=== PATIENT | female | born 1975 | race Caucasian/White ===

== ENCOUNTER 2018-03-10 20:17 | Emergency (ER) | payer BC, SELFPAY ==
[2018-03-10 20:24] VITALS: BP 132/81; PULSE 86; RESP 16; TEMP 36.8; O2SAT 96
[2018-03-10 20:36] LABS: Bilirubin Negative (Negative); Blood Trace-intact (Negative); Clarity Cloudy; Glucose Negative (Negative); Ketones Negative (Negative); Leukocyte Esterase Trace (Negative); Nitrite Negative (Negative); Specific Gravity >= 1.030 (1.005-1.025); Urobilinogen 0.2 EU/dL (Up TO 0.2)
--- NOTE | 2018-03-10 20:37 | W.ED.GENAD ---
Discharge Plan Disposition Patient Disposition: HOME Condition: Stable Discharge Details Chief Complaint: Urinary Clinical Impression: UTI (urinary tract infection) Primary Care Provider: Kenya Castro ED Provider: Dee Dee Belcher Home Meds and New Rx's Prescriptions: New sulfamethoxazole-trimethoprim [Bactrim DS] 800-160 mg tablet 1 tab PO BID 5 Days Qty: 10 RF: 0 phenazopyridine [Pyridium] 100 mg tablet 100 mg PO TID PRN (Reason: pain) 0 Days Qty: 6 RF: 0 Continue PNV cmb#95-ferrous fumarate-FA [] 1 EACH tablet 1 tab PO DAILY RF: 0 acetaminophen [Tylenol] 325 MG tablet 2 tab PO DIRECTED RF: 0 ibuprofen 200 MG capsule 1 tab PO DIRECTED RF: 0 docusate sodium [Colace] 100 MG capsule 1 tab PO DAILY RF: 0 Discharge Instructions Instructions: Urinary Tract Infection in Women (ED) Additional Instructions: Take the antibiotics until finished. Take the pyridium as needed for burning with urination. Follow up with your primary care doctor in 1 week for re-evaluation as needed. Return to the emergency department with any worsening or new concerning symptoms such as fever, vomiting, back pain or any other concerns. Discharge Data Discharge Physician: Dee Dee Belcher Medical Decision Making Medical Records 42yo F w/ dysuria, hematuria, and urinary frequency x 1 week. No fever, vomiting or back pain. Vitals within normal limits. Afebrile. Pt appears nontoxic. Minimal suprapubic tenderness. No CVAT. Appears likely c/w UTI. No signs to indicate pyelonephritis at this time. UA notes 10-20 wbc, trace leukocyte esterace, neg epi's, neg nitrite, few bacteria. Urine culture sent. Pt states she has responded to bactrim in the past. Pt states she would like pyridium as well. Dose of bactrim and pyridium given here and scripts for home. test negative. Pt instructed to f/u with pcp in 1 week as needed and to return here with any worsening symptoms of fever, vomiting, back pain or any other concerns. HPI General Mode of arrival: ambulatory. Date/Time Provider Initiated Documentation: 03/10/18 20:26. Limitations to Documentation: no limitations. Information obtained by: patient. HPI Narrative: Pt is a 42yo F who presents to the ED w/ a c/o dysuria, hematuria, and urinary frequency for the past week. Pt has a h/o UTI in the past and states this feels similar. Pt has last taken antibiotics 2 years ago. Pt denies fever, vomiting, or back pain. Pt states she has had intermittent nausea but none at present. Pt states she tried to get into her PCP for this but was not able to get an appointment until 03/17. Past medical history: Asthma, PTSD Surgical history: x 2, Left ACL repair, T&A, R breast lumpectomy Social history: Denies tobacco, alcohol or drugs Meds: Vitamins Allergies: Effexor, Codeine (nausea) PCP: Dr. Milan Related Data Home Medications Medication Instructions Recorded Confirmed PNV cmb#95-ferrous fumarate-FA 1 tab PO DAILY 07/09/15 03/10/18 [] acetaminophen [Tylenol] 2 tab PO DIRECTED 11/25/15 03/10/18 docusate sodium [Colace] 1 tab PO DAILY 11/25/15 03/10/18 ibuprofen 1 tab PO DIRECTED 11/25/15 03/10/18 phenazopyridine [Pyridium] 100 mg PO TID PRN 0 Days #6 tab 03/10/18 sulfamethoxazole-trimethoprim 1 tab PO BID 5 Days #10 tab 03/10/18 [Bactrim DS] Previous Rx's Medication Instructions Recorded phenazopyridine [Pyridium] 100 mg PO TID PRN 0 Days #6 tab 03/10/18 sulfamethoxazole-trimethoprim 1 tab PO BID 5 Days #10 tab 03/10/18 [Bactrim DS] Allergies Allergy/AdvReac Type Severity Reaction Status Date / Time venlafaxine HCl Allergy Verified 03/10/18 20:30 [From Effexor] codeine AdvReac Nausea Verified 03/10/18 20:30 General Stated Complaint: Urinary MARCIA: 4 Review of Systems Review of Systems All systems reviewed & are unremarkable except as noted in HPI and below Constitutional Reports as per HPI, Denies chills and Denies fever(s) Eyes Denies blurry vision ENT Denies dizziness, Denies sore throat and Denies throat swelling Cardiovascular Denies chest pain and Denies dyspnea Respiratory Denies cough and Denies dyspnea Gastrointestinal Reports abdominal pain, Denies diarrhea and Denies vomiting Genitourinary Reports hematuria, Reports urinary frequency, Reports dysuria and Reports urinary urgency Musculoskeletal Denies back pain and Denies numbness Integumentary/Breasts Denies lesions and Denies rash Neurologic Denies dizziness, Denies focal weakness and Denies numbness Allergic/Immunologic Denies throat swelling COUNT INCLUDES THE [facility] Medical History Asthma PTSD (post-traumatic stress disorder) Social History Smoking/Tobacco Use Status: Never Surgical History section Tonsillectomy and adenoidectomy knee surgery Exam Const General: cooperative, healthy appearing and no acute distress HENMT Head: normal to inspection Eyes General: appearance normal, both eyes and all related structures Neck Neck: normal visual inspection Resp Effort & Inspection: normal respiratory effort and able to speak in complete sentences Auscultation: clear to auscultation bilaterally Cardio Rate: regular rate Rhythm: regular rhythm GI Palpation: soft and tender suprapubicly (minimal ) Back/Spine/Pelvis Back: no CVA tenderness Skin General skin exam: no rashes or lesions noted Neuro General: alert, awake and oriented x3 Motor: muscle tone normal throughout Extrem General: normal to inspection, full ROM and no edema Psych Appearance: grossly normal Affect: normal affect Course Vital Signs Temperature 98.3 F 03/10/18 20:24 Pulse 86 03/10/18 20:24 Respiratory Rate 16 03/10/18 20:24 Blood Pressure 132/81 03/10/18 20:24 Pulse Oximetry 96 03/10/18 20:24 Temperature 98.3 F 03/10/18 20:24 Temperature Source Skin 03/10/18 20:24 Pulse 86 03/10/18 20:24 Respiratory Rate 16 03/10/18 20:24 Respiratory Effort 03/10/18 20:28 Blood Pressure 132/81 03/10/18 20:24 Blood Pressure Position Sitting 03/10/18 20:24 Pulse Oximetry 96 03/10/18 20:24 Oxygen Delivery Method Room Air 03/10/18 20:24 Oxygen Flow Rate 0 03/10/18 20:24 Pain Level 5 03/10/18 20:29
[2018-03-10 20:44] LABS: Bacteria Few HPF (Negative); Crystals Negative HPF (Negative); Epithelial Cells Negative HPF (Negative); Mucus Negative (Negative); Other Cells Negative (Negative)
[2018-03-10 20:45] LABS: C & S Indicated? Yes; Casts Negative LPF (Negative)
--- NOTE | 2018-03-10 20:56 | ED.GENADUL_ITS ---
Discharge Plan Disposition Patient Disposition: HOME Condition: Stable Discharge Details Chief Complaint: Urinary Clinical Impression: UTI (urinary tract infection) Primary Care Provider: Kenya Castro ED Provider: Dee Dee Belcher Home Meds and New Rx's Prescriptions: New sulfamethoxazole-trimethoprim [Bactrim DS] 800-160 mg tablet 1 tab PO BID 5 Days Qty: 10 RF: 0 phenazopyridine [Pyridium] 100 mg tablet 100 mg PO TID PRN (Reason: pain) 0 Days Qty: 6 RF: 0 Continue PNV cmb#95-ferrous fumarate-FA [] 1 EACH tablet 1 tab PO DAILY RF: 0 acetaminophen [Tylenol] 325 MG tablet 2 tab PO DIRECTED RF: 0 ibuprofen 200 MG capsule 1 tab PO DIRECTED RF: 0 docusate sodium [Colace] 100 MG capsule 1 tab PO DAILY RF: 0 Discharge Instructions Instructions: Urinary Tract Infection in Women (ED) Additional Instructions: Take the antibiotics until finished. Take the pyridium as needed for burning with urination. Follow up with your primary care doctor in 1 week for re-evaluation as needed. Return to the emergency department with any worsening or new concerning symptoms such as fever, vomiting, back pain or any other concerns. Discharge Data Discharge Physician: Dee Dee Belcher Medical Decision Making Medical Records 42yo F w/ dysuria, hematuria, and urinary frequency x 1 week. No fever, vomiting or back pain. Vitals within normal limits. Afebrile. Pt appears nontoxic. Minimal suprapubic tenderness. No CVAT. Appears likely c/w UTI. No signs to indicate pyelonephritis at this time. UA notes 10-20 wbc, trace leukocyte esterace, neg epi's, neg nitrite, few bacteria. Urine culture sent. Pt states she has responded to bactrim in the past. Pt states she would like pyridium as well. Dose of bactrim and pyridium given here and scripts for home. test negative. Pt instructed to f/u with pcp in 1 week as needed and to return here with any worsening symptoms of fever, vomiting, back pain or any other concerns. HPI General Mode of arrival: ambulatory . Date/Time Provider Initiated Documentation: 03/10/18 20:26 . Limitations to Documentation: no limitations . Information obtained by: patient . HPI Narrative: Pt is a 42yo F who presents to the ED w/ a c/o dysuria, hematuria , and urinary frequency for the past week. Pt has a h/o UTI in the past and states this feels similar. Pt has last taken antibiotics 2 years ago. Pt denies fever, vomiting, or back pain. Pt states she has had intermittent nausea but none at present. Pt states she tried to get into her PCP for this but was not able to get an appointment until 03/17. Past medical history: Asthma, PTSD Surgical history: x 2, Left ACL repair, T&A, R breast lumpectomy Social history: Denies tobacco, alcohol or drugs Meds: Vitamins Allergies: Effexor, Codeine (nausea) PCP: Dr. Milan Related Data Home Medications Medication Instructions Recorded Confirmed PNV cmb#95-ferrous fumarate-FA 1 tab PO DAILY 07/09/15 03/10/18 [] acetaminophen [Tylenol] 2 tab PO DIRECTED 11/25/15 03/10/18 docusate sodium [Colace] 1 tab PO DAILY 11/25/15 03/10/18 ibuprofen 1 tab PO DIRECTED 11/25/15 03/10/18 phenazopyridine [Pyridium] 100 mg PO TID PRN 0 Days #6 tab 03/10/18 sulfamethoxazole-trimethoprim 1 tab PO BID 5 Days #10 tab 03/10/18 [Bactrim DS] Previous Rx's Medication Instructions Recorded phenazopyridine [Pyridium] 100 mg PO TID PRN 0 Days #6 tab 03/10/18 sulfamethoxazole-trimethoprim 1 tab PO BID 5 Days #10 tab 03/10/18 [Bactrim DS] Allergies Allergy/AdvReac Type Severity Reaction Status Date / Time venlafaxine HCl Allergy Verified 03/10/18 20:30 [From Effexor] codeine AdvReac Nausea Verified 03/10/18 20:30 General Stated Complaint: Urinary MARCIA: 4 Review of Systems Review of Systems All systems reviewed & are unremarkable except as noted in HPI and below Constitutional Reports as per HPI, Denies chills and Denies fever(s) Eyes Denies blurry vision ENT Denies dizziness, Denies sore throat and Denies throat swelling Cardiovascular Denies chest pain and Denies dyspnea Respiratory Denies cough and Denies dyspnea Gastrointestinal Reports abdominal pain, Denies diarrhea and Denies vomiting Genitourinary Reports hematuria, Reports urinary frequency, Reports dysuria and Reports urinary urgency Musculoskeletal Denies back pain and Denies numbness Integumentary/Breasts Denies lesions and Denies rash Neurologic Denies dizziness, Denies focal weakness and Denies numbness Allergic/Immunologic Denies throat swelling [facility] Medical History Asthma PTSD (post-traumatic stress disorder) Social History Smoking/Tobacco Use Status: Never Surgical History section Tonsillectomy and adenoidectomy knee surgery Exam Const General: cooperative, healthy appearing and no acute distress HENMT Head: normal to inspection Eyes General: appearance normal, both eyes and all related structures Neck Neck: normal visual inspection Resp Effort & Inspection: normal respiratory effort and able to speak in complete sentences Auscultation: clear to auscultation bilaterally Cardio Rate: regular rate Rhythm: regular rhythm GI Palpation: soft and tender suprapubicly (minimal ) Back/Spine/Pelvis Back: no CVA tenderness Skin General skin exam: no rashes or lesions noted Neuro General: alert, awake and oriented x3 Motor: muscle tone normal throughout Extrem General: normal to inspection, full ROM and no edema Psych Appearance: grossly normal Affect: normal affect Course Vital Signs Temperature 98.3 F 03/10/18 20:24 Pulse 86 03/10/18 20:24 Respiratory Rate 16 03/10/18 20:24 Blood Pressure 132/81 03/10/18 20:24 Pulse Oximetry 96 03/10/18 20:24 Temperature 98.3 F 03/10/18 20:24 Temperature Source Skin 03/10/18 20:24 Pulse 86 03/10/18 20:24 Respiratory Rate 16 03/10/18 20:24 Respiratory Effort 03/10/18 20:28 Blood Pressure 132/81 03/10/18 20:24 Blood Pressure Position Sitting 03/10/18 20:24 Pulse Oximetry 96 03/10/18 20:24 Oxygen Delivery Method Room Air 03/10/18 20:24 Oxygen Flow Rate 0 03/10/18 20:24 Pain Level 5 03/10/18 20:29
[2018-03-10] MEDS: Phenazopyridine 100 MG TAB PO ×2 (21:11→21:15)
[2018-03-10] MEDS: Sulfameth/Trimeth DS TAB 1 TAB PO (21:11)
[2018-03-10 21:18] VITALS: BP 132/81; PULSE 86; RESP 16; TEMP 36.8; O2SAT 96
== END 2018-03-10 21:16 | disposition home or self-care (01) ==
LOC: ER 21:01
PROVIDERS: Emergency Provider Physician Assistant; PCP Family Medicine
DX: R39.0 Extravasation of urine (principal)
CPT/HCPCS: 81025; 99283; 81003; 81015; 87086

== ENCOUNTER 2018-05-28 20:00 | Emergency (ER) | payer BC, SELFPAY ==
--- NOTE | 2018-05-28 20:01 | W.ED.GENAD ---
Discharge Plan Disposition Patient Disposition: HOME Condition: Stable Discharge Details Chief Complaint: Orthopedic Clinical Impression: Right ankle sprain Primary Care Provider: Kenya Castro ED Provider: Christian Cavanaugh Home Meds and New Rx's Prescriptions: No Action acetaminophen [Tylenol] 325 MG tablet 2 tab PO DIRECTED RF: 0 ibuprofen 200 MG capsule 1 tab PO DIRECTED RF: 0 Discharge Instructions Instructions: Ankle Sprain (ED) Additional Instructions: you can take 1000mg tylenol and 600mg ibuprofen every 6 hours for pain as needed if pain continues in a week see your primary care provider for a recheck Medical Decision Making 42 yo female comes in with right lateral ankle pain. She states around noon today she was on a new sled tube and tried to stop and her right ankle hit a fence, no head trauma or loc. No headache, neck pain, chest pain, abd pain. Only has pain in the right lateral ankle. HAs limited rom of the ankle due to pain. No pain over metatarsals, no gross deformity or swelling, 2+ dp/pt pulses and intact sensation. Suspect contusion vs sprain/strain but will obtain xray to eval for fx/dislocation no acute findings on read of the xray. If vrad agrees will place in ankle stir up splint and crutches to use as needed, and advised f/u with pcp in a week if pain continues Differential Diagnosis sprain, strain, contusion, fx Imaging Data Radiologic Study: Attestation: I personally reviewed and interpreted this imaging study as follows: Imaging: X-Ray My impression: no acute findings HPI General Mode of arrival: wheelchair. Date/Time Provider Initiated Documentation: 05/28/18 20:01. Limitations to Documentation: no limitations. Information obtained by: patient. History of Present Illness 42 year old F presents to the emergency department with the chief complaint of right ankle pain, described as moderate, with intensity rated at 6. Quality is described as aching, and is localized to the right and lower extremity. Patient reports no radiation. Patient started experiencing this hour(s) (8) and it has been constant. Movement improves symptom(s), Rest worsens symptoms . Patient notes no other symptoms.. Patient did receive the following treatments prior to arrival, none Related Data Home Medications Medication Instructions Recorded Confirmed acetaminophen [Tylenol] 2 tab PO DIRECTED 11/25/15 05/28/18 ibuprofen 1 tab PO DIRECTED 11/25/15 05/28/18 Allergies Allergy/AdvReac Type Severity Reaction Status Date / Time venlafaxine HCl Allergy Verified 05/28/18 20:09 [From Effexor] codeine AdvReac Nausea Verified 05/28/18 20:09 General MARCIA: 4 Review of Systems Review of Systems All systems reviewed & are unremarkable except as noted in HPI and below Constitutional Denies chills, Denies fever(s) and Denies weakness Cardiovascular Denies chest pain and Denies dyspnea Respiratory Denies dyspnea Gastrointestinal Denies abdominal pain, Denies nausea and Denies vomiting Musculoskeletal Denies joint swelling Neurologic Denies weakness [facility] Medical History Asthma PTSD (post-traumatic stress disorder) Surgical History section Tonsillectomy and adenoidectomy knee surgery Social History Smoking/Tobacco Use Status: Never Exam Const General: no acute distress Orientation: alert HENMT Head: normal to inspection Ears: external ears normal General nose exam: external nose normal Mouth: moist mucous membranes Eyes General: appearance normal, both eyes and all related structures Neck Neck: normal visual inspection Resp Effort & Inspection: normal respiratory effort and able to speak in complete sentences Cardio Rate: regular rate Skin General skin exam: no rashes or lesions noted Neuro General: alert and oriented x3 Extrem General: normal capillary refill Psych Mental Status: mental status grossly normal
[2018-05-28 20:04] VITALS: BP 138/70; PULSE 85; RESP 18; TEMP 37.2; O2SAT 99
--- NOTE | 2018-05-28 20:11 | DI.RAD_ITS ---
SYMPTOMS/DIAGNOSIS: PAIN, S/P TRAUMA RIGHT ANKLE: Three views. No acute fracture or dislocation is identified. IMPRESSION: No acute abnormality.
[2018-05-28] MEDS: Ibuprofen 600 MG TAB PO (20:14)
--- NOTE | 2018-05-28 20:22 | ED.GENADUL_ITS ---
Discharge Plan Disposition Patient Disposition: HOME Condition: Stable Discharge Details Chief Complaint: Orthopedic Clinical Impression: Right ankle sprain Primary Care Provider: Kenya Castro ED Provider: Christian Cavanaugh Home Meds and New Rx's Prescriptions: No Action acetaminophen [Tylenol] 325 MG tablet 2 tab PO DIRECTED RF: 0 ibuprofen 200 MG capsule 1 tab PO DIRECTED RF: 0 Discharge Instructions Instructions: Ankle Sprain (ED) Additional Instructions: you can take 1000mg tylenol and 600mg ibuprofen every 6 hours for pain as needed if pain continues in a week see your primary care provider for a recheck Medical Decision Making 42 yo female comes in with right lateral ankle pain. She states around noon today she was on a new sled tube and tried to stop and her right ankle hit a fence, no head trauma or loc. No headache, neck pain, chest pain, abd pain. Only has pain in the right lateral ankle. HAs limited rom of the ankle due to pain. No pain over metatarsals, no gross deformity or swelling, 2+ dp/pt pulses and intact sensation. Suspect contusion vs sprain/strain but will obtain xray to eval for fx/dislocation no acute findings on read of the xray. If vrad agrees will place in ankle stir up splint and crutches to use as needed, and advised f/u with pcp in a week if pain continues Differential Diagnosis sprain, strain, contusion, fx Imaging Data Radiologic Study: Attestation: I personally reviewed and interpreted this imaging study as follows: Imaging: X-Ray My impression: no acute findings HPI General Mode of arrival: wheelchair . Date/Time Provider Initiated Documentation: 05/28/18 20:01 . Limitations to Documentation: no limitations . Information obtained by: patient . History of Present Illness 42 year old F presents to the emergency department with the chief complaint of right ankle pain, described as moderate, with intensity rated at 6. Quality is described as aching, and is localized to the right and lower extremity. Patient reports no radiation. Patient started experiencing this hour(s) (8) and it has been constant. Movement improves symptom(s), Rest worsens symptoms . Patient notes no other symptoms.. Patient did receive the following treatments prior to arrival, none Related Data Home Medications Medication Instructions Recorded Confirmed acetaminophen [Tylenol] 2 tab PO DIRECTED 11/25/15 05/28/18 ibuprofen 1 tab PO DIRECTED 11/25/15 05/28/18 Allergies Allergy/AdvReac Type Severity Reaction Status Date / Time venlafaxine HCl Allergy Verified 05/28/18 20:09 [From Effexor] codeine AdvReac Nausea Verified 05/28/18 20:09 General MARCIA: 4 Review of Systems Review of Systems All systems reviewed & are unremarkable except as noted in HPI and below Constitutional Denies chills, Denies fever(s) and Denies weakness Cardiovascular Denies chest pain and Denies dyspnea Respiratory Denies dyspnea Gastrointestinal Denies abdominal pain, Denies nausea and Denies vomiting Musculoskeletal Denies joint swelling Neurologic Denies weakness [facility] Medical History Asthma PTSD (post-traumatic stress disorder) Surgical History section Tonsillectomy and adenoidectomy knee surgery Social History Smoking/Tobacco Use Status: Never Exam Const General: no acute distress Orientation: alert HENMT Head: normal to inspection Ears: external ears normal General nose exam: external nose normal Mouth: moist mucous membranes Eyes General: appearance normal, both eyes and all related structures Neck Neck: normal visual inspection Resp Effort & Inspection: normal respiratory effort and able to speak in complete sentences Cardio Rate: regular rate Skin General skin exam: no rashes or lesions noted Neuro General: alert and oriented x3 Extrem General: normal capillary refill Psych Mental Status: mental status grossly normal
--- NOTE | 2018-05-28 21:02 | DI.VRAD_ITS ---
EXAM: XR Right Ankle Complete, 3 or more Views EXAM DATE/TIME: 05/28/2018 8:12 PM CLINICAL HISTORY: 42 years old, female; Pain; Ankle; Right; Patient HX: Pain, per PT: Sledding and hit ankle on metal fence post TECHNIQUE: XR Right ankle 3 or more views. COMPARISON: No relevant prior studies available. FINDINGS: Bones/joints: Normal. Soft tissues: Normal. IMPRESSION: No fractures or dislocations. Dictated and Authenticated by: Sukhi Gutierrez MD. Ordering:[id number] Gonzales MD
== END 2018-05-28 21:18 | disposition home or self-care (01) ==
PROVIDERS: Emergency Provider Emergency Medicine; PCP Family Medicine
DX: S93.401A Sprain of unspecified ligament of right ankle, initial encounter (principal); W22.8XXA Striking against or struck by other objects, initial encounter; Y93.23 Activity, snow (alpine) (downhill) skiing, snowboarding, sledding, tobogganing and snow tubing
CPT/HCPCS: 29515; 99283; 73610; E0114; L4350

== ENCOUNTER 2018-07-04 01:48 | Outpatient (CLI) | payer BC, SELFPAY ==
--- NOTE | 2018-07-04 17:47 | DI.MAMMO_ITS ---
SYMPTOM/DIAGNOSIS: SCREENING, Z12.31 MAMMOGRAMS: Mammograms were interpreted according to the usual protocol including computer analysis with CAD system, tomosynthesis and C view imaging. There are no priors for comparison. Breast density, Category C. No suspicious masses or microcalcifications are seen. There is no definite evidence of malignancy. IMPRESSION: Negative mammogram. Routine screening is recommended. Category 1. MQSA ASSESSMENT OF FINDINGS: Negative. Category 1. Patient will receive a letter notifying them of these results. Bi-RADS category C. The breasts are heterogeneously dense, which may obscure small masses.
== END 2018-07-04 02:08 ==
PROVIDERS: PCP Family Medicine; Visit Provider Family Medicine
DX: Z12.31 Encounter for screening mammogram for malignant neoplasm of breast (principal)
CPT/HCPCS: 77063; 77067

== ENCOUNTER 2019-12-25 13:06 | Emergency (ER) | payer BC, SELFPAY ==
[2019-12-25 13:16] VITALS: BP 160/96; PULSE 98; RESP 20; TEMP 36.9; O2SAT 99
--- NOTE | 2019-12-25 13:26 | ED.GENADUL_ITS ---
Discharge Plan Disposition Patient Disposition: HOME Condition: Stable Discharge Details Chief Complaint: Orthopedic Clinical Impression: Cox fracture Primary Care Provider: Kenya Castro ED Provider: Dee Dee Belcher Home Meds and New Rx's Prescriptions: New oxycodone 5 mg tablet 5 mg PO Q6H PRN (Reason: pain) Qty: 14 RF: 0 Continued acetaminophen [Tylenol] 325 MG tablet 2 tab PO DIRECTED RF: 0 ibuprofen 200 MG capsule 1 tab PO DIRECTED RF: 0 multivitamin Tablet 1 tab PO DAILY RF: 0 bupropion HCl 300 mg tablet extended release 24 hr 300 mg PO DAILY RF: 0 Discharge Instructions Instructions: Foot Fracture in Adults (ED) Additional Instructions: Use your crutches that you have at home for ambulation and do not put any weight on your left leg until cleared by orthopedics. Rest, ice, and elevate the affected area as much as possible. Alternate tylenol and motrin as needed and directed for pain. Take the oxycodone for pain not relieved with Tylenol or Motrin. Call the orthopedist office today to schedule a follow-up appointment for reevaluation in the next 2 to 3 weeks. Return to the emergency department if you develop any worsening or new concerning symptoms. Referrals: Pete Rodriguez MD [ [facility] STAFF PHYSICIAN] - Discharge Data Discharge Physician: Dee Dee Belcher Medical Decision Making 44yo F who presents w/ a c/o L foot pain after twisting her L ankle when missing 1 step while walking down the stairs this afternoon. Tenderness to palpation/mild edema and ecchymoses L mid to distal 5th metatarsal. No ankle or proximal leg tenderness or evidence of injury. No deformity. NV intact. Xray notes proximal L 5th metatarsal fracture consistent with Cox fracture. Case discussed with Dr. Rodriguez who recommended walking boot and nonweightbearing with crutches. Patient has crutches at home. Patient advised on the importance of RICE. She was given a prescription for oxycodone. She was placed on orthopedic follow-up list. Usual and customary return precautions given prior to discharge. Medical Records Medical records reviewed: Yes I reviewed the patient's medical records. Imaging Data Radiologic Study: Radiologist's impression: XR FOOT LT COMPLETE CLINICAL HISTORY: twisted L foot, pain L distal 5th MT, r/o acute fx TECHNIQUE: COMPARISON: No exams were available for comparison FINDINGS: Three views were obtained. There is a transverse fracture of the base of the 5th metatarsal with moderate displacement. No additional fracture seen. HPI General Mode of arrival: ambulatory . Date/Time Provider Initiated Documentation: 12/25/19 13:09 . Limitations to Documentation: no limitations . Information obtained by: patient . HPI Narrative: Patient is a 44-year-old female who presents with left foot pain after she missed 1 step going down the stairs at her home earlier this afternoon. Patient is complaining of pain in her lateral midfoot. She denies any ankle, upper leg or knee pain. She has not taken a medication for pain. She denies any chance of and has regular periods. Related Data Home Medications Medication Instructions Recorded Confirmed acetaminophen [Tylenol] 2 tab PO DIRECTED 11/25/15 12/25/19 ibuprofen 1 tab PO DIRECTED 11/25/15 12/25/19 bupropion HCl 300 mg PO DAILY 12/25/19 12/25/19 multivitamin 1 tab PO DAILY 12/25/19 12/25/19 oxycodone 5 mg PO Q6H PRN #14 tab 12/25/19 Previous Rx's Medication Instructions Recorded oxycodone 5 mg PO Q6H PRN #14 tab 12/25/19 Allergies Allergy/AdvReac Type Severity Reaction Status Date / Time venlafaxine HCl Allergy Verified 05/28/18 20:09 [From Effexor] codeine AdvReac Nausea Verified 05/28/18 20:09 General Stated Complaint: Orthopedic MARCIA: 4 Review of Systems All systems reviewed & are unremarkable except as noted in HPI and below PFSH Medical History (Updated 12/25/19 @ 15:04 by Dee Dee Belcher DO) Asthma PTSD (post-traumatic stress disorder) Surgical History (Updated 12/25/19 @ 13:20 by Makayla Chen) section 11yrs ago 11/20/15 RCD after unsuccessful SAMUEL. Erick Hobson. 3920gm. Incidental bladder lac during surgery. Repaired. Stoner x1w. H/O breast surgery (Acute) tumor removed @ age 18 knee surgery Tonsillectomy and adenoidectomy Social History Smoking/Tobacco Use Status: Never Alcohol Intake: never Drug use: Never Substance use type: does not use Do you feel safe at home: Yes Do you feel safe in your relationship?: Yes Exam Const General: cooperative, healthy appearing and no acute distress HENMT Head: normal to inspection Mouth: oral mucosae normal Eyes General: appearance normal, both eyes and all related structures Neck Neck: normal visual inspection Resp Effort & Inspection: normal respiratory effort and able to speak in complete sentences Cardio Rate: regular rate Skin General skin exam: no rashes or lesions noted Neuro General: patient alert, patient awake, patient oriented x3, moves all extremities and no focal motor deficits Motor: muscle tone normal throughout Extrem Ankle/foot/toe images: 1. Tenderness to palpation of lateral mid to distal foot overlying fifth metatarsal. There is minimal edema and ecchymosis. No open wounds, deformity, crepitus or step-off noted. Left PT/DP pulses intact. Other: No tenderness to palpation of left medial or lateral malleolus. Psych Appearance: grossly normal Affect: normal affect Course Vital Signs Vital signs: Vital Signs Temperature 98.4 F 12/25/19 13:16 Pulse 98 H 12/25/19 13:16 Respiratory Rate 12/25/19 13:16 Blood Pressure 160/96 H 12/25/19 13:16 Pulse Oximetry 99 12/25/19 13:16 Temperature 98.4 F 12/25/19 13:16 Temperature Source Skin 12/25/19 13:16 Pulse 98 H 12/25/19 13:16 Respiratory Rate 20 12/25/19 13:16 Respiratory Effort Non-Labored 12/25/19 13:20 Blood Pressure 160/96 H 12/25/19 13:16 Blood Pressure Position Sitting 12/25/19 13:16 Pulse Oximetry 99 12/25/19 13:16 Oxygen Delivery Method Room Air 12/25/19 13:16 Oxygen Flow Rate 0 12/25/19 13:16 Pain Level 10 12/25/19 13:16
--- NOTE | 2019-12-25 13:30 | DI.RAD_ITS ---
EXAM: XR FOOT LT COMPLETE CLINICAL HISTORY: twisted L foot, pain L distal 5th MT, r/o acute fx TECHNIQUE: COMPARISON: No exams were available for comparison FINDINGS: Three views were obtained. There is a transverse fracture of the base of the 5th metatarsal with mod erate displacement. No additional fracture seen. IMPRESSION:
[2019-12-25] MEDS: Ibuprofen 600 MG TAB PO (13:34)
== END 2019-12-25 15:29 | disposition home or self-care (01) ==
PROVIDERS: Emergency Provider Physician Assistant; PCP Family Medicine
DX: S92.351A Displaced fracture of fifth metatarsal bone, right foot, initial encounter for closed fracture (principal); W10.8XXA Fall (on) (from) other stairs and steps, initial encounter; X50.9XXA Other and unspecified overexertion or strenuous movements or postures, initial encounter
CPT/HCPCS: 28470; 73630; L4361

== ENCOUNTER 2020-01-08 14:46 | Outpatient (CLI) | payer BC, SELFPAY ==
--- NOTE | 2020-01-08 14:45 | DI.RAD_ITS ---
EXAM: XR FOOT LT COMPLETE INDICATION: F/U FRACTURE. COMPARISON: CR XR FOOT LT COMPLETE from 12/25/2019 TECHNIQUE: 2D digital imaging was performed. FINDINGS: There has been no change in the alignment of the 5th metatarsal fracture. Soft tissue swelling remai ns present. DATA REPOSITORY: RADIATION DOSE DELIVERED:
== END 2020-01-08 15:06 ==
PROVIDERS: PCP Family Medicine; Referring Provider Family Medicine; Visit Provider Student in an Organized Health Care Education/Training Program
DX: S92.352A Displaced fracture of fifth metatarsal bone, left foot, initial encounter for closed fracture (principal)
CPT/HCPCS: 73630

== ENCOUNTER 2020-01-26 11:11 | Outpatient (CLI) | payer BC, SELFPAY ==
--- NOTE | 2020-01-26 10:28 | DI.RAD_ITS ---
EXAM: XR FOOT LT COMPLETE CLINICAL HISTORY: f/u fracture. TECHNIQUE: 2D digital imaging was performed. COMPARISON: CR XR FOOT LT COMPLETE from 01/08/2020 FINDINGS: BONES: No change in alignment of the left 5th metatarsal fracture. No bony destructive lesion is see n. JOINTS: No dislocation present. SOFT TISSUE: Persistent soft tissue swelling laterally. IMPRESSION: Stable 5th metatarsal fracture. DATA REPOSITORY: RADIATION DOSE DELIVERED:
== END 2020-01-26 11:31 ==
PROVIDERS: PCP Family Medicine; Referring Provider Family Medicine; Visit Provider Student in an Organized Health Care Education/Training Program
DX: S92.352A Displaced fracture of fifth metatarsal bone, left foot, initial encounter for closed fracture (principal)
CPT/HCPCS: 73630

== ENCOUNTER 2020-02-12 15:10 | Outpatient (CLI) | payer BC, SELFPAY ==
--- NOTE | 2020-02-12 14:21 | DI.RAD_ITS ---
EXAM: XR FOOT LT COMPLETE CLINICAL HISTORY: f/u fracture. TECHNIQUE: 2D digital imaging was performed. COMPARISON: CR XR FOOT LT COMPLETE from 01/26/2020 FINDINGS: BONES: There is no change in alignment of the 5th metatarsal fracture. No new fracture is identified . No bony destructive lesion is seen. JOINTS: No dislocation present. SOFT TISSUE: Normal. IMPRESSION: Stable 5th metatarsal fracture. DATA REPOSITORY: RADIATION DOSE DELIVERED:
== END 2020-02-12 15:30 ==
PROVIDERS: PCP Family Medicine; Referring Provider Family Medicine; Visit Provider Student in an Organized Health Care Education/Training Program
DX: S92.352A Displaced fracture of fifth metatarsal bone, left foot, initial encounter for closed fracture (principal)
CPT/HCPCS: 73630

== ENCOUNTER 2020-03-25 14:36 | Outpatient (CLI) | payer BC, SELFPAY ==
--- NOTE | 2020-03-25 13:00 | DI.RAD_ITS ---
EXAM: XR FOOT LT COMPLETE CLINICAL HISTORY: Cox fx left foot. TECHNIQUE: 2D digital imaging was performed. COMPARISON: CR XR FOOT LT COMPLETE from 02/12/2020 FINDINGS: BONES: There is a nearly completely healed left 5th metatarsal fracture. No new fracture or dislocat ion is present. No bony destructive lesion is seen. JOINTS: No dislocation present. SOFT TISSUE: Normal. IMPRESSION: Nearly completely healed left 5th metatarsal fracture. DATA REPOSITORY: RADIATION DOSE DELIVERED:
== END 2020-03-25 14:56 ==
PROVIDERS: PCP Family Medicine; Referring Provider Family Medicine; Visit Provider Physician Assistant
DX: S92.352A Displaced fracture of fifth metatarsal bone, left foot, initial encounter for closed fracture (principal)
CPT/HCPCS: 73630

== ENCOUNTER 2020-07-05 20:57 | Outpatient (REF) | payer BC, SELFPAY | END 2020-07-05 20:58 | disposition home or self-care (01) | LOC: LBN 20:57 | PROVIDERS: PCP Family Medicine; Visit Provider Family Medicine | DX: R30.0 Dysuria (principal) | CPT/HCPCS: 87077; 87086; 87186 ==

== ENCOUNTER 2020-08-13 01:42 | Outpatient (CLI) | payer BC, SELFPAY ==
--- NOTE | 2020-08-13 15:50 | DI.MAMMO_ITS ---
EXAM: MG MAMMO SCREENING CLINICAL HISTORY: SCREENING, Z12.31. TECHNIQUE: Bilateral full field digital CC and MLO mammographic images were obtained with 3D tomosyn thesis and utilizing computer aided detection (CAD). COMPARISON: Prior baseline mammogram performed June 2018 was reviewed FINDINGS: Fibroglandular tissue is moderately dense, this decreasing the sensitivity mammogram for finding hidd en underlying lesions. There are no obvious new spiculated masses nor malignant appearing microcalcification groups. There is no significant architectural distortion nor skin thickening-retraction. IMPRESSION: Moderately dense fibroglandular tissue. No obvious radiographic evidence of malignancy nor significa nt change compared to the baseline mammogram of 2019. BI-RADS Category 1 - Negative Breast Density - Category C - Heterogeneously dense Breast density Category C or D implies that the patient has dense breast tissue. Dense breast tissue can make it harder to find cancer on a mammogram. Dense breast tissue is also associated with an incr eased risk of breast cancer. This information about the result of the mammogram report was provided to the patient to raise their awareness. Use this report when you speak with the patient about their risks for breast cancer, which includes their family history. At that time, you may recommend additional screening tests (Ultrasoun d or MRI) as these tests may add significant information. A negative radiographic report should not delay biopsy if a dominant or clinically suspicious mass is present. Up to ten percent of cancers are not identified on mammography. A negative report may reinforce clinical impression. Adenosis and dense breasts may obscure an underlying neoplasm. False positive reports average 6 to 10%. Patient will receive a letter notifying them of these results.
== END 2020-08-13 02:02 ==
PROVIDERS: PCP Family Medicine; Visit Provider Family Medicine
DX: Z12.31 Encounter for screening mammogram for malignant neoplasm of breast (principal)
CPT/HCPCS: 77063; 77067

== ENCOUNTER → 2022-01-01 00:35 | Outpatient (CLI) | payer BC, SELFPAY ==
--- NOTE | 2022-01-01 08:30 | DI.MAMMO_ITS ---
Exam(s) MAMMO SCREENING EXAM: MAMMO SCREENING CLINICAL HISTORY: SCREENING, Z12.31. TECHNIQUE: Bilateral full field digital CC and MLO mammographic images were obtained with 3D tomosyn thesis and utilizing computer aided detection (CAD). COMPARISON: Prior mammograms were reviewed, the most recent being July 2020. FINDINGS: Towards the posterior aspect of the right there is an 8 x 6 millimeter asymmetric density located 8 c m in from the nipple, slightly medial of center. Require spot compression view. No malignant-appear ing microcalcification groups in this region nor elsewhere in either breast. In the opposite-left breast there is asymmetric density towards the upper outer quadrant seen on the MLO view, possibly just overlapping tissue but appearing slightly more evident on prior studies. No malignant-appearing microcalcification this region. There is no significant architectural distortion nor skin thickening-retraction. IMPRESSION: Findings bilaterally, as described above. Spot compression right CC and left MLO views recommended. Also bilateral complete breast ultrasound. BI-RADS Category 0 - Assessment Incomplete: Need additional imaging evaluation Breast Density - Category C - Heterogeneously dense Breast density Category C or D implies that the patient has dense breast tissue. Dense breast tissue can make it harder to find cancer on a mammogram. Dense breast tissue is also associated with an incr eased risk of breast cancer. This information about the result of the mammogram report was provided to the patient to raise their awareness. Use this report when you speak with the patient about their risks for breast cancer, which includes their family history. At that time, you may recommend additional screening tests (Ultrasoun d or MRI) as these tests may add significant information. A negative radiographic report should not delay biopsy if a dominant or clinically suspicious mass is present. Up to ten percent of cancers are not identified on mammography. A negative report may reinforce clinical impression. Adenosis and dense breasts may obscure an underlying neoplasm. False positive reports average 6 to 10%. Patient will receive a letter notifying them of these results.
== END ==
PROVIDERS: PCP Family Medicine; Visit Provider Family Medicine
DX: Z12.31 Encounter for screening mammogram for malignant neoplasm of breast (principal); R92.8 Other abnormal and inconclusive findings on diagnostic imaging of breast
CPT/HCPCS: 77063; 77067

== ENCOUNTER → 2022-01-06 01:05 | Outpatient (CLI) | payer BC, SELFPAY ==
--- NOTE | 2022-01-06 | DI.US_ITS ---
Exam(s) US BREAST LT COMPLETE US BREAST RT COMPLETE MG MAMMO SCREEN CALL BACK BI EXAM: MG MAMMO SCREEN CALL BACK BI AND BILATERAL COMPLETE BREAST ULTRASOUND CLINICAL HISTORY: F/U MAMMO,RT ASYMMETRIC DENSITY,LT ASYMMETRIC DENSITY,R92.8. TECHNIQUE: BILATERAL spot mammographic images obtained with 3D tomosynthesisand utilizing computer a ided detection (CAD). . Complete BILAT breast Ultrasound was also performed, including all 4 quadrants, the retroareolar hilda ons, and both axillary regions. COMPARISON: Prior mammograms were reviewed. This additional imaging was performed due to findings described on the recent screening mammogram of 01/01/2022. FINDINGS: DIAGNOSTIC BILATERAL MAMMOGRAM: Additional mammographic views performed todayrender area of concern in the left breast less concernin g. Additional spot compression view of the right breast does not dissipate the finding described. We then proceeded with ultrasound. BILATERAL COMPLETE BREAST ULTRASOUND: Left breast: At the 2 o'clock position (7 cm from nipple) there is a 5 x 3 millimeter benign microcys t noted. No solid lesions seen in all 4 quadrants. The retroareolar region appears unremarkable. L eft axilla is negative for significant adenopathy. Right breast: No solid lesions seen in all 4 quadrants. At the 1 o'clock position there is a 4 x 3 m illimeter benign microcyst. At the 10 o'clock position (6 cm from nipple) there is a 9 x 5 millimete r microcyst. There is also another slightly smaller microcyst at the 10 o'clock position located 8 c m from nipple. No other focal findings in the 4 quadrants nor in the retroareolar region. Right axi lla is negative for significant adenopathy. IMPRESSION: Benign-appearing bilateral findings. Only bilateral microcysts seen on ultrasound, no evidence of so lid lesions in either breast. I suspect that the finding in the posterior aspect of the right breast most probably corresponds to 1 of the microcysts or possibly may represent a benign lymph node. Appropriate follow-up, as discussed by myself with the patient today, is repeat right breast mammogra m in 6 months to ensure stability of the slightly lobulated noncalcified nodular density posteriorly in the right breast.. The patient was informed of these findings and recommendations by myself prior to leaving the departm ent today. BI-RADS Category 3 - 6 month - Probably Benign Finding: Recommend follow-up mammography in 6 months Breast Density - Category C - Heterogeneously dense Breast density Category C or D implies that the patient has dense breast tissue. Dense breast tissue can make it harder to find cancer on a mammogram. Dense breast tissue is also associated with an incr eased risk of breast cancer. This information about the result of the mammogram report was provided to the patient to raise their awareness. Use this report when you speak with the patient about their risks for breast cancer, which includes their family history. At that time, you may recommend additional screening tests (Ultrasoun d or MRI) as these tests may add significant information. A negative radiographic report should not delay biopsy if a dominant or clinically suspicious mass is present. Up to ten percent of cancers are not identified on mammography. A negative report may reinforce clinical impression. Adenosis and dense breasts may obscure an underlying neoplasm. False positive reports average 6 to 10%. Patient will receive a letter notifying them of these results.
== END ==
PROVIDERS: PCP Family Medicine; Visit Provider Family Medicine
DX: R92.8 Other abnormal and inconclusive findings on diagnostic imaging of breast (principal); R92.0 Mammographic microcalcification found on diagnostic imaging of breast
CPT/HCPCS: 76642; 77063; 77067

== ENCOUNTER 2022-01-06 10:47 | Outpatient (CLI) | payer BC, SELFPAY ==
[2022-01-06 12:07] LABS: Calculated LDL 97 mg/dL (<100); Cholesterol 169 mg/dL (<200); Glucose 102 mg/dL (74-106); HDL Cholesterol 50 mg/dL (40-60); Triglyceride 110 mg/dL (<150)
== END 2022-01-06 10:48 | disposition home or self-care (01) ==
LOC: LBO 10:47
PROVIDERS: PCP Family Medicine; Visit Provider Family Medicine
DX: N39.0 Urinary tract infection, site not specified (principal); Z13.1 Encounter for screening for diabetes mellitus; Z13.220 Encounter for screening for lipoid disorders
CPT/HCPCS: 36415; 80061; 82947

== ENCOUNTER 2022-08-13 03:23 | Outpatient (CLI) | payer BC, SELFPAY ==
--- NOTE | 2022-08-13 | DI.MAMMO_ITS ---
Exam(s) MG MAMMO DIAGNOSTIC UNI EXAM: MAMMO DIAGNOSTIC UNI CLINICAL HISTORY: F/U ABNL MAMMO, 6 MO F/U, R92.8. TECHNIQUE: Craniocaudal and mediolateral oblique Full Field Digital Mammography views of the right b reast with Computer Aided Diagnosis followed by Tomosynthesis. COMPARISON: Comparison is made with prior examinations. FINDINGS: Mammography/Tomosynthesis: Masses/Architectural Distortion: The lobulated density in the posterior right breast is unchanged. N o suspicious masses or areas of architectural distortion are seen. Microcalcifictions: No suspicious pleomorphic-type are seen. Skin Thickening/Nipple Retraction: None. IMPRESSION: 1. No evidence of malignancy is noted. 2. A six-month follow-up right mammogram is recommended for re-evaluation. 3. The findings were discussed with the patient on the date of the examination. BI-RADS Category 3 - 6 month - Probably Benign Finding: Recommend follow-up imaging in 6 months Breast Density - Category C - Heterogeneously dense Breast density Category C or D implies that the patient has dense breast tissue. Dense breast tissue can make it harder to find cancer on a mammogram. Dense breast tissue is also associated with an incr eased risk of breast cancer. This information about the result of the mammogram report was provided to the patient to raise their awareness. Use this report when you speak with the patient about their risks for breast cancer, which includes their family history. At that time, you may recommend additional screening tests (Ultrasoun d or MRI) as these tests may add significant information. A negative radiographic report should not delay biopsy if a dominant or clinically suspicious mass is present. Up to ten percent of cancers are not identified on mammography. A negative report may reinforce clinical impression. Adenosis and dense breasts may obscure an underlying neoplasm. False positive reports average 6 to 10%. Patient will receive a letter notifying them of these results.
== END 2022-08-13 03:43 ==
LOC: DI 03:23
PROVIDERS: PCP Nurse Practitioner Adult Health; Visit Provider Family Medicine
DX: R92.8 Other abnormal and inconclusive findings on diagnostic imaging of breast (principal); N60.81 Other benign mammary dysplasias of right breast
CPT/HCPCS: 77061; 77065; G0279

== ENCOUNTER → 2023-02-19 00:57 | Outpatient (CLI) | payer BC, SELFPAY ==
--- NOTE | 2023-02-19 09:30 | DI.MAMMO_ITS ---
Exam(s) MAMMO DIAGNOSTIC BI EXAM: MAMMO DIAGNOSTIC BI CLINICAL HISTORY: 6 MO F/U,R92.8 TECHNIQUE: Bilateral full field digital CC and MLO mammographic images were obtained with 3D tomosyn thesis and utilizing computer aided detection (CAD). COMPARISON: Available for comparison. FINDINGS: Masses/Architectural Distortion: The 9 mm nodule in the medial posterior right breast is stable. No new nodules or suspicious areas of architectural distortion are seen. Microcalcifications: No suspicious pleomorphic-type are seen. Skin Thickening/Nipple Retraction: None. IMPRESSION: 1. No significant interval change with no specific features of malignancy noted. 2. A six-month follow-up right mammogram is requested to continue monitoring this nodule. 3. Findings were discussed with the patient on the date of the examination. BI-RADS Category 3 - 6 month - Probably Benign Finding: Recommend follow-up imaging in 6 months Breast Density - Category C - Heterogeneously dense Breast density category C or D implies that the patient has dense breast tissue. Dense breast tissue is very common and is not abnormal but dense breast tissue can make it harder to find cancer on a ma mmogram. Also, dense breast tissue may increase their breast cancer risk. This information about the result of the mammogram report was provided to the patient to raise their awareness. Use this report when you speak with the patient about their risks for breast cancer, which includes their family hist ory. At that time, you may recommend for more screening tests (Ultrasound or MRI) as they might be us eful based on their risk. A negative radiographic report should not delay biopsy if a dominant or clinically suspicious mass is present. Up to ten percent of cancers are not identified on mammography. A negative report may reinforce clinical impression. Adenosis and dense breasts may obscure an underlying neoplasm. False positive reports average 6 to 10%. Patient will receive a letter notifying them of these results.
== END ==
PROVIDERS: PCP Nurse Practitioner Adult Health; Visit Provider Family Medicine
DX: Z12.31 Encounter for screening mammogram for malignant neoplasm of breast (principal); R92.8 Other abnormal and inconclusive findings on diagnostic imaging of breast
CPT/HCPCS: 77062; 77066; G0279

== ENCOUNTER 2023-03-09 20:31 | Outpatient (REF) | payer BC, SELFPAY | END 2023-03-09 20:32 | disposition home or self-care (01) | LOC: LBN 20:31 | PROVIDERS: PCP Nurse Practitioner Adult Health; Visit Provider Nurse Practitioner Family | DX: R30.0 Dysuria (principal); R30.9 Painful micturition, unspecified | CPT/HCPCS: 87077; 87086; 87186 ==

== ENCOUNTER 2023-04-29 07:01 | Day surgery (SDC) | payer BC, SELFPAY ==
--- NOTE | 2023-04-28 20:41 | W.PM.DSUDISC ---
Date of service: 04/29/23 Time of Service: 08:40 Discharge Plan Disposition Patient Disposition: Home Condition: Good Discharge Details Reason For Visit: screening colonoscopy Attending Provider: Mark Claudio Primary Care Provider: Kenya Castro Home Meds and New Rx's Prescriptions: Continued propranolol 60 mg capsule,extended release 24 hr 60 mg PO DAILY valacyclovir 1 gram tablet See Rx Instructions PO DAILY Rx Instructions: orally daily; bupropion HCl 300 mg tablet extended release 24 hr 300 mg PO DAILY Patient Comments: take 1 tablet by mouth once daily Discontinued polyethylene glycol 3350 17 gram/dose powder 238 g PO ONCE Qty: 238 0RF Rx Instructions: take per colonoscopy instructions bisacodyl [Dulcolax (bisacodyl)] 5 mg tablet,delayed release (DR/EC) 5 mg PO ONCE Qty: 4 0RF Rx Instructions: take per colonoscopy instructions Discharge Instructions Additional Instructions: Chanel, we were able to complete your colonoscopy today without any difficulty. Your prep was outstanding. I could see everything just fine. I did not see any signs of tumors, polyps, or anything else worrisome. I recommend that you consider another colonoscopy in 10 years. If you have any questions in the meantime, or any other changes, please do not hesitate to contact us. 1. If tolerated, consume a soft, low fiber diet for 1-2 days. 2[address] Do not drive, drink alcohol, operate machinery, make critical decisions, or do activities that require coordination or balance for 24 hours. 3. Because air was put into your colon during the procedure, expelling air from your rectum (passing gas or farting) is normal. 4. You may not have a bowel movement for 1-3 days because of the colonoscopy prep. This is normal. 5. Go directly to the emergency room if you notice any of the following: Develop chills (warm to touch), or if you have a thermometer and your temperature is above 101 Difficulty breathing or difficultly swallowing Persistent vomiting Severe abdominal pain, other than gas cramps Severe chest pain Black, tarry stools Any bleeding ? exceeding one tablespoon 6. Call your physician if the site where your intravenous was started becomes red, swollen, painful, and warm to touch. 7. Your physician has reviewed your pre-procedure medications. Please continue to take those medications as previously ordered. You will be given specific information/education regarding any changes to your medications before leaving. Activity:: Activity as Tolerated Diet:: As Tolerated Discharge Orders Discharge Orders: Discharge Order (Routine); Ordered 04/28/23 Ordered By: Mark Claudio DS: Diagnosis Discharge Diagnosis (1) Screening for colon cancer: Status: Acute Asessment and Plan: Negative screening colonoscopy
--- NOTE | 2023-04-28 20:43 | COLE_ITS ---
Date of service: 04/29/23 Time of Service: 08:41 Colonoscopy Report Date of procedure: 04/29/23 Pre-op diagnosis general: screening colonoscopy Post-op diagnosis procedure note: other (Negative screening colonoscopy) Procedure: Colonoscopy Surgeon: Mark Claudio Anesthesia Type: General:No Airway Estimated blood loss (mL): 0 Pathology: none sent Complications: None Disposition: same day Indications: Chanel is a 47 year old woman who needs her first screening colonoscopy Prep: Miralax/Dulcolax Procedure Start Time: 08:16 Procedure End Time: 08:28 Retraction Time: 6 Findings: Negative screening colonoscopy Procedure Description: After the induction of monitored anesthetic care, and with the patient in left lateral decubitus position, I began by performing an external anorectal exam.? Perineum and skin were normal, as was the anal verge.? There was no evidence of external hemorrhoids.? Next, I performed a digital rectal exam.? I did not appreciate any abnormal findings.? Next, I advanced a colonoscope into the rectal vault.? I performed retroflexion.? This was normal.? Using insufflation, I then advanced the colonoscope beyond the rectal folds and into the sigmoid colon before advancing towards the cecum.? The scope was noted to be in the cecum by identification of the ileocecal valve and appendiceal orifice.? I then began withdrawing the colonoscope using repeated irrigation as necessary for full evaluation of the colonic mucosa. ?Once the scope was withdrawn to the level of the rectum, great care was taken to examine portions of the rectal folds.? I did not see any signs of tumors, polyps, or any other pathology. Finally, the scope was withdrawn and the patient was brought to the same-day surgery recovery unit as the anesthetic wore off. ?The findings and instructions were shared with the patient prior to discharge. [place] Bowel Prep [place] Bowel Prep Right Colon: 3 Left Colon: 3 Transverse Colon: 3 Total Score: 9
[2023-04-29 07:27] VITALS: BP 137/88; PULSE 93; RESP 16; TEMP 37; O2SAT 96
--- NOTE | 2023-04-29 07:42 | W.ANESPRE ---
General Info Date of Service Date Performed: 04/29/23 Height: 5 ft Weight: 73.5 kg Body Mass Index (BMI): 31.6 Surgical Procedure: Operation Date: 04/29/23 08:20 Proposed Procedure Side Surgeon silver Claudio MD Meds Allergies and Home Medications Allergies Allergy/AdvReac Type Severity Reaction Status Date / Time venlafaxine HCl Allergy Severe seratonin Verified 04/29/23 07:13 [From Effexor] syndrome codeine AdvReac Severe Nausea Verified 04/29/23 07:13 risperidone [From Risperdal] AdvReac Intermediate weight gain Verified 04/29/23 07:13 sertraline [From Zoloft] AdvReac Intermediate low libido Verified 04/29/23 07:13 Home Medication Medication Instructions Recorded bupropion HCl 300 mg 24 hr tablet, 300 mg PO DAILY 12/25/19 extended release valacyclovir 1 gram tablet See Rx Instructions PO DAILY As 11/12/21 needed for reese sole propranolol 60 mg capsule,24 60 mg PO DAILY 04/21/23 hr,extended release Current Visit Medications: Current Medications Generic Name Dose Route Start Last Admin Trade Name Freq PRN Reason Stop Dose Admin Hyoscyamine Sulfate 0.125 mg 04/28/23 20:44 Hyoscyamine 0.125 Mg Sl/Oral/Chew SL 05/28/23 20:43 DIRECTED PRN Ringer's Solution 1,000 mls @ 80 mls/hr 04/29/23 06:00 IV 05/28/23 23:59 INFUSION HILARY IV Miscellaneous Supplies 1 each 04/29/23 06:00 Iv Access IV 05/28/23 23:59 DIRECTED HILARY Ondansetron HCl 4 mg 04/28/23 20:44 Ondansetron 4 Mg/2 Ml Vial IVP 05/28/23 20:43 Q4H PRN PRN Nausea / Vomiting Sodium Chloride 0 ml 04/29/23 06:00 Normal Saline Flush 10 Ml Syr IV 05/28/23 23:59 PRN PRN Sodium Chloride 0 ml 04/29/23 06:00 Normal Saline 10 Ml Vial IJ 05/28/23 23:59 DIRECTED PRN Sterile Water 0 ml 04/29/23 06:00 Water,Injection,Sterile 10 Ml Vial IJ 05/28/23 23:59 DIRECTED PRN PFSH Active Problems Active Problems: Problem Status Onset Code Family history of premature coronary heart disease Z82.49 Essential tremor G25.0 Frequent UTI N39.0 Depression F32.9 Screening for colon cancer Z12.11 Cox fracture 11/24/19 S99.199A Medical History Medical History Asthma PTSD (post-traumatic stress disorder) Medical History Comments:: VICENTE with Csections Surgical History Surgical History H/O breast surgery tumor removed @ age 18 knee surgery Tonsillectomy and adenoidectomy section 11yrs ago 11/20/15 RCD after unsuccessful SAMUEL. Erick Hobson. [id number]. Incidental bladder lac during surgery. Repaired. Stoner x1w. Tobacco Smoking/Tobacco Use Status: Never Alcohol Alcohol Intake: never Substance Use Substance use: Never Substance use type: does not use Vital Signs and Lab Results Vital Signs Most Recent Vital Signs in EMR: Most Recent Vital Signs Temp Pulse Resp BP Pulse Ox 37 C 93 H 16 137/88 96 04/29/23 07:27 04/29/23 07:27 04/29/23 07:27 04/29/23 07:27 04/29/23 07:27 Lab Results Blood Type / Crossmatch: No Data to Display Complete Blood Count: No Data to Display Complete Metabolic Panel: No Data to Display Liver Function Panel: No Data to Display Coagulation Panel: No Data to Display Cardiac Panel: No Data to Display Arterial Blood Gas: No Data to Display Venous Blood Gas: No Data to Display Pancreas Panel: No Data to Display Thyroid Panel: No Data to Display Infectious Disease: No Data to Display Blood Cultures: No Data to Display Toxicology Panel: No Data to Display Panel: No Data to Display Anesthesia Assessment and Plan Anesthesia History Personal History: No History of Anesthesia Complications and PONV Family History: No Family History of Anesthesia Complications Exercise Tolerance Exercise Tolerance: Metabolic Equivalents>4 Pertinent Negatives Pertinent Negatives: No Major Cardiovascular Symptoms or Complaints Cardiac & Pulmonary Exam Cardiac Exam: Normal S1/S2 Heart Sounds Pulmonary Exam: Clear Bilateral Breath Sounds Implantable Cardiac Device Does patient have a Pacemaker or an ICD?: No Airway Exam Known Difficult Airway: No Mallampati Class: 3 Mouth Opening: Normal (> 3cm) Thyromental Distance: Greater than 3 cm Neck Range of Motion: Full ROM Neck Circumference: Normal Teeth Condition: Normal Dentition and Fixed Braces (retainer) ASA Classification ASA Score: ASA 2 Emergency Case?: No NPO Status NPO Status: NPO Clears >2 hours, Solids >8 hours Status Status: Negative HCG Anesthesia Plan Resuscitation Status: Full Code Anesthesia Technique: General Anesthesia Airway Planned: Natural Airway Monitors Used: Standard Monitors
[2023-04-29] MEDS: Lactated Ringers 1,000 ML 80 ML IV (07:55)
[2023-04-29 08:03] VITALS: BMI 31.6
[2023-04-29 08:40] VITALS: BP 99/57; PULSE 88; RESP 18; TEMP 36.5; O2SAT 97
[2023-04-29 09:00] VITALS: BP 118/70; PULSE 78; RESP 16; TEMP 36.3; O2SAT 99
--- NOTE | 2023-04-29 09:03 | W.ANESPOSTOP ---
Postoperative Evaluation Date, Time and Location Date Performed: 05/06/23 Time Performed: 08:50 Patient Location: Day Surgery Unit Vital Signs Most Recent Imported Vital Signs: Most Recent Vital Signs Temp Pulse Resp BP Pulse Ox 36.5 C 88 18 99/57 L 97 04/29/23 08:40 04/29/23 08:40 04/29/23 08:40 04/29/23 08:40 04/29/23 08:40 Pain Score Most Recent Pain Score: Most Recent Pain Score Pain Level 0 04/29/23 08:40 Assessment Mental Status: Awake (Alert & Oriented to Patient Baseline) Airway and Respiratory Function: Patent airway with normal (patient baseline) respiratory exam Cardiovascular Function: Hemodynamically Stable Hydration Status: Adequately Hydrated Nausea & Vomiting: No Nausea or Vomiting Pain: Pt. Denies Any Pain Peripheral Nerve Block: Patient did not receive a nerve block
== END 2023-04-29 09:20 | disposition home or self-care (01) ==
LOC: SUR 07:01
PROVIDERS: PCP Family Medicine; Visit Provider Surgery
PROC: 0DJD8ZZ Inspection of Lower Intestinal Tract, Via Natural or Artificial Opening Endoscopic (ICD-10-PCS; CPT 45378; principal; 2023-04-29 08:15)
DX: Z12.11 Encounter for screening for malignant neoplasm of colon (principal); Z80.0 Family history of malignant neoplasm of digestive organs
CPT/HCPCS: 45378; 81025

== ENCOUNTER → 2023-09-23 02:30 | Outpatient (CLI) | payer BC, SELFPAY ==
--- NOTE | 2023-09-23 | DI.MAMMO_ITS ---
Exam(s) MG MAMMO DIAGNOSTIC UNI EXAM: MG MAMMO DIAGNOSTIC UNI CLINICAL HISTORY: 6 MO F/U, F/U ABNL MAMMO, R92.8,RT NODULE TECHNIQUE: Right cc and MLO mammogram images were performed according to the usual protocol inclu ding computer analysis with CAD system, tomosynthesis and C-view imaging. COMPARISON: 2018 through 2022 FINDINGS: The previously noted area of nodularity posterior right breast is no longer seen. No suspicious mass es or suspicious microcalcifications are seen. No skin thickening or abnormal axillary lymph nodes are seen. IMPRESSION: BI-RADS Category 1, Negative mammogram Return to bilateral screening mammography. Breast Density - Category C - Heterogeneously dense A negative radiographic report should not delay biopsy if a dominant or clinically suspicious mass is present. Up to ten percent of cancers are not identified on mammography. A negative report may reinforce clinical impression. Adenosis and dense breasts may obscure an underlying neoplasm. False positive reports average 6 to 10%. Patient will receive a letter notifying them of these results.
== END ==
PROVIDERS: PCP Family Medicine; Visit Provider Family Medicine
DX: Z12.31 Encounter for screening mammogram for malignant neoplasm of breast (principal); R92.8 Other abnormal and inconclusive findings on diagnostic imaging of breast
CPT/HCPCS: 77061; 77065; G0279

== ENCOUNTER → 2025-05-01 00:43 | Outpatient (CLI) | payer BC, SELFPAY ==
--- NOTE | 2025-05-01 | DI.MAMMO_ITS ---
Exam(s) MAMMO SCREENING EXAM: MAMMO SCREENING CLINICAL HISTORY: SCREENING, Z12.31. TECHNIQUE: Bilateral full field digital CC and MLO mammographic images were obtained with 3D tomosynthesis and utilizing computer aided detection (CAD). COMPARISON: Prior mammograms were reviewed. FINDINGS: There has been no significant change in the appearance and distribution of the fibroglandular tissue. There are no new spiculated masses nor malignant appearing microcalcification groups. There is no significant architectural distortion nor skin thickening-retraction. IMPRESSION: No radiographic evidence of malignancy. BI-RADS Category 1 - Negative Breast Density - Category C - The breast are heterogeneously dense, which may obscure small masses. Breast density Category C or D implies that the patient has dense breast tissue. Dense breast tissue can make it harder to find cancer on a mammogram. Dense breast tissue is also associated with an increased risk of breast cancer. This information about the result of the mammogram report was provided to the patient to raise their awareness. Use this report when you speak with the patient about their risks for breast cancer, which includes their family history. At that time, you may recommend additional screening tests (Ultrasound or MRI) as these tests may add significant information. A negative radiographic report should not delay biopsy if a dominant or clinically suspicious mass is present. Up to ten percent of cancers are not identified on mammography. A negative report may reinforce clinical impression. Adenosis and dense breasts may obscure an underlying neoplasm. False positive reports average 6 to 10%. Patient will receive a letter notifying them of these results.
== END ==
PROVIDERS: PCP Family Medicine; Visit Provider Family Medicine
DX: Z12.31 Encounter for screening mammogram for malignant neoplasm of breast (principal)
CPT/HCPCS: 77063; 77067